=== PATIENT | male | born 1950 | race African-American/Black ===

== ENCOUNTER 2023-06-07 09:35 | Emergency (ER) | payer OTHER ==
[~2023-06-07] VITALS: Ht 180.3 cm; Wt 77.3 kg
[2023-06-07 09:45] VITALS: TEMP 98.2
[2023-06-07] MEDS ORDERED: Ketorolac 30 MG/ML VIAL IM ONE (11:45)
[2023-06-07] MEDS ORDERED: Acetaminophen 500 MG TAB PO ONE (11:45)
[2023-06-07 13:42] VITALS: BP 128/82; PULSE 75
== END 2023-06-07 13:53 | disposition home or self-care (01) ==
LOC: COL.ER 09:35
DX: S16.1XXA Strain of muscle, fascia and tendon at neck level, initial encounter (principal); M25.561 Pain in right knee; M54.50 Low back pain, unspecified; V89.2XXA Person injured in unspecified motor-vehicle accident, traffic, initial encounter; Y92.410 Unspecified street and highway as the place of occurrence of the external cause
CPT/HCPCS: J1885